=== PATIENT | male | born 1945 | race Two or more races ===

== ENCOUNTER 2019-01-28 05:30 | Day surgery (SDC) | payer OTHER | END 2019-01-28 09:05 | disposition home or self-care (01) | LOC: AMB-ENDOS 05:30 | DX: R19.8 Other specified symptoms and signs involving the digestive system and abdomen (principal); Z86.010 Personal history of colon polyps ==

== ENCOUNTER 2020-07-07 21:11 | Inpatient (IN) | payer OTHER ==
[~2020-07-07] VITALS: Ht 172.7 cm; Wt 75.7 kg
[2020-07-09] MEDS ORDERED: LOSARTAN POTASS50 MG PO (06:18)
[2020-07-09] MEDS ORDERED: FOLIC ACID1 MG PO (06:18)
[2020-07-09] MEDS ORDERED: AZELASTINE205.5 MCG/ (06:18)
[2020-07-09] MEDS ORDERED: MONTELUKAST SOD10 MG (06:18)
[2020-07-09] MEDS ORDERED: SYNTHROID88 MCG PO (06:19)
[2020-07-09] MEDS ORDERED: SYMBICORT 16010.2 GM (06:19)
[2020-07-09] MEDS ORDERED: ATORVASTATIN CA10 MG PO (06:19)
== END 2020-07-14 11:07 | disposition home or self-care (01) | DRG 390 ==
LOC: ER 21:11 → SEC-K 07-08 09:37 → SURH 07-08 09:37
PROVIDERS: ADMIT Surgery; ATTEND Surgery
PROC: 02HV33Z Insertion of Infusion Device into Superior Vena Cava, Percutaneous Approach (ICD-10-PCS; principal; 2020-07-09)
PROC: 3E0436Z Introduction of Nutritional Substance into Central Vein, Percutaneous Approach (ICD-10-PCS; 2020-07-09)
DX: K56.690 Other partial intestinal obstruction (principal); E86.0 Dehydration; E03.9 Hypothyroidism, unspecified; I10 Essential (primary) hypertension; Z90.49 Acquired absence of other specified parts of digestive tract

== ENCOUNTER 2023-08-09 20:41 | Inpatient (IN) | payer OTHER ==
[~2023-08-09] VITALS: Ht 172.7 cm; Wt 73.0 kg
[~2023-08-09 20:41] MED LIST: ATORVASTATIN CA10 MG PO; AZELASTINE205.5 MCG/; FOLIC ACID1 MG PO; LOSARTAN POTASS50 MG PO; MONTELUKAST SOD10 MG; SYMBICORT 16010.2 GM; SYNTHROID88 MCG PO
[2023-08-09] MEDS ORDERED: INTESTINEX680 M1 PO (21:04)
[2023-08-09 23:09] LABS: URINE APPEARANCE Clear; URINE BILIRRUBIN Negative (NEGATIVE); URINE BLOOD Small; URINE COLOR Yellow; URINE GLUCOSE Negative (NEGATIVE); URINE LEUKOCYTE Trace; URINE NITRATE Negative; URINE PROTEIN Negative (NEGATIVE); URINE UROBILINOGEN 0.2 E.U./dl
[2023-08-09 23:13] LABS: URINE BACTERIA 37.4 uL (0.0-1933); URINE EPITHELIAL CELLS 6.4 uL (0.0-38.8); URINE RBC 5.3 uL (0.0-20.8); URINE WBC 21.7 uL (0.0-23.2)
[2023-08-09 23:15] LABS: HEMATOCRIT 30.4 % (39.0-48.0); MEAN CELL VOLUME 93.1 fL (80.0-100.00); MEAN CORPUSCULAR HGB CONC 32.4 g/dl (32.0-36.0); PLATELET COUNT 200 K/uL (150-450); RED BLOOD COUNT 3.26 M/uL (4.00-6.00); RED CELL DISTRIBUTION WIDTH 13.9 % (11.5-14.5)
[2023-08-09 23:17] LABS: HEMOGLOBIN 9.8 g/dL (13-16.00)
[2023-08-10 00:06] LABS: INR 1.05; PARTIAL THROMBOPLASTIN TIME 25.8 SECONDS (22.0-34.0)
[2023-08-10 00:11] LABS: CALCIUM 8.1 mg/dL (8.5-10.1); CREATININE SERUM 1.17 mg/dL (0.70-1.30); GFR 60.45; POTASSIUM 3.74 mEq/L (3.5-5.1)
[2023-08-10 10:06] LABS: HEMATOCRIT 23.8 % (39.0-48.0); MEAN CELL VOLUME 92.8 fL (80.0-100.00); PLATELET COUNT 179 K/uL (150-450); RED BLOOD COUNT 2.56 M/uL (4.00-6.00); RED CELL DISTRIBUTION WIDTH 13.4 % (11.5-14.5)
[2023-08-10 10:09] LABS: MEAN CORPUSCULAR HEMOGLOBIN 30.8 pg (27.00-32.0)
[2023-08-10 10:10] LABS: HEMOGLOBIN 7.9 g/dL (13-16.00)
[2023-08-10 13:37] LABS: ob NEGATIVE (NEGATIVE)
[2023-08-11 06:51] LABS: HEMATOCRIT 27.5 % (39.0-48.0); HEMOGLOBIN 9.4 g/dL (13-16.00); MEAN CELL VOLUME 90.4 fL (80.0-100.00); MEAN CORPUSCULAR HGB CONC 34.3 g/dl (32.0-36.0); PLATELET COUNT 154 K/uL (150-450); RED BLOOD COUNT 3.04 M/uL (4.00-6.00); RED CELL DISTRIBUTION WIDTH 14.1 % (11.5-14.5)
[2023-08-11 20:21] LABS: HEMATOCRIT 26.7 % (39.0-48.0); MEAN CELL VOLUME 89.3 fL (80.0-100.00); MEAN CORPUSCULAR HGB CONC 33.1 g/dl (32.0-36.0); PLATELET COUNT 157 K/uL (150-450); RED BLOOD COUNT 2.99 M/uL (4.00-6.00)
[2023-08-11 20:22] LABS: HEMOGLOBIN 8.8 g/dL (13-16.00); MEAN CORPUSCULAR HEMOGLOBIN 29.4 pg (27.00-32.0)
[2023-08-12 08:09] LABS: HEMATOCRIT 26.6 % (39.0-48.0); HEMOGLOBIN 9.1 g/dL (13-16.00); MEAN CELL VOLUME 89.7 fL (80.0-100.00); MEAN CORPUSCULAR HEMOGLOBIN 30.8 pg (27.00-32.0); MEAN CORPUSCULAR HGB CONC 34.3 g/dl (32.0-36.0); PLATELET COUNT 168 K/uL (150-450); RED BLOOD COUNT 2.96 M/uL (4.00-6.00)
[2023-08-12 08:18] LABS: BILIRUBIN TOTAL 0.42 mg/dL (0.3-1.2); CALCIUM 7.2 mg/dL (8.5-10.1); CREATININE SERUM 0.93 mg/dL (0.70-1.30); GFR 78.78; GLOBULINA 2.2 G/DL (2.4-3.5); PHOSPHOROUS 2.2 mg/dL (2.5-4.9); POTASSIUM 3.59 mEq/L (3.5-5.1); TOTAL PROTEIN 4.2 gm/dL (6.4-8.2)
[2023-08-12 23:08] LABS: HEMATOCRIT 27.1 % (39.0-48.0); HEMOGLOBIN 9.4 g/dL (13-16.00); MEAN CELL VOLUME 88.4 fL (80.0-100.00); MEAN CORPUSCULAR HEMOGLOBIN 30.5 pg (27.00-32.0); MEAN CORPUSCULAR HGB CONC 34.5 g/dl (32.0-36.0); PLATELET COUNT 159 K/uL (150-450); RED BLOOD COUNT 3.06 M/uL (4.00-6.00); RED CELL DISTRIBUTION WIDTH 14.5 % (11.5-14.5)
[2023-08-13 09:09] LABS: HEMATOCRIT 24.1 % (39.0-48.0); MEAN CELL VOLUME 89.3 fL (80.0-100.00); MEAN CORPUSCULAR HGB CONC 33.5 g/dl (32.0-36.0); PLATELET COUNT 176 K/uL (150-450); RED CELL DISTRIBUTION WIDTH 14.3 % (11.5-14.5)
[2023-08-13 09:10] LABS: HEMOGLOBIN 8.1 g/dL (13-16.00)
[2023-08-13 14:24] LABS: INR 1.07; PARTIAL THROMBOPLASTIN TIME 25.7 SECONDS (22.0-34.0); PROTHROMBIN TIME 11.2 SECONDS (9.0-11.5)
[2023-08-14 01:54] LABS: HEMATOCRIT 24.9 % (39.0-48.0); HEMOGLOBIN 8.1 g/dL (13-16.00); MEAN CELL VOLUME 90.6 fL (80.0-100.00); MEAN CORPUSCULAR HEMOGLOBIN 29.4 pg (27.00-32.0); MEAN CORPUSCULAR HGB CONC 32.7 g/dl (32.0-36.0); PLATELET COUNT 167 K/uL (150-450); RED BLOOD COUNT 2.75 M/uL (4.00-6.00)
[2023-08-14 21:12] LABS: ABG PH 7.567 (7.35-7.45); ABG PO2 96.1 mmHg (80-100); ABG pCO2 23.4 mmHg (35-45); BASE EXCESS 0.7 mmol/l; BICARBONATE 20.8 mmol/l (23-25); SaO2 98.5 %; Tco2 21.5 mmol/l; o2 21 %
[2023-08-14 21:13] LABS: allen test SATISFACTORY; puncture site RADIAL RIGHT
[2023-08-15 01:11] LABS: HEMATOCRIT 30.2 % (39.0-48.0); MEAN CELL VOLUME 92.7 fL (80.0-100.00); MEAN CORPUSCULAR HGB CONC 32.2 g/dl (32.0-36.0); RED BLOOD COUNT 3.25 M/uL (4.00-6.00); RED CELL DISTRIBUTION WIDTH 15.1 % (11.5-14.5)
[2023-08-15 01:15] LABS: HEMOGLOBIN 9.7 g/dL (13-16.00); MEAN CORPUSCULAR HEMOGLOBIN 29.8 pg (27.00-32.0); PLATELET COUNT 137 K/uL (150-450)
[2023-08-15 07:47] LABS: ALBUMIN 1.6 gm/dL (3.4-5.0); BILIRUBIN TOTAL 0.35 mg/dL (0.3-1.2); CHOL HDL RATIO 4.1 (0-5.0); CREATININE SERUM 1.57 mg/dL (0.70-1.30); GFR 43.05; GLOBULINA 1.7 G/DL (2.4-3.5); MAGNESIUM 2.1 mg/dL (1.8-2.4); PHOSPHOROUS 2.4 mg/dL (2.5-4.9); POTASSIUM 3.15 mEq/L (3.5-5.1); TOTAL PROTEIN 3.3 gm/dL (6.4-8.2)
[2023-08-15 07:51] LABS: C-REACTIVE PROTEIN 0.43 MG/DL (0.00-0.29)
[2023-08-15 11:02] LABS: MEAN CELL VOLUME 89.1 fL (80.0-100.00); MEAN CORPUSCULAR HGB CONC 33.1 g/dl (32.0-36.0); PLATELET COUNT 142 K/uL (150-450); RED BLOOD COUNT 2.45 M/uL (4.00-6.00); RED CELL DISTRIBUTION WIDTH 14.5 % (11.5-14.5)
[2023-08-15 11:05] LABS: MEAN CORPUSCULAR HEMOGLOBIN 29.3 pg (27.00-32.0)
[2023-08-15 11:06] LABS: HEMATOCRIT 21.8 % (39.0-48.0); HEMOGLOBIN 7.2 g/dL (13-16.00)
[2023-08-15 11:13] LABS: INR 1.26; PARTIAL THROMBOPLASTIN TIME 26.5 SECONDS (22.0-34.0)
[2023-08-16 00:58] LABS: MEAN CELL VOLUME 91.2 fL (80.0-100.00); PLATELET COUNT 143 K/uL (150-450); RED BLOOD COUNT 1.27 M/uL (4.00-6.00); RED CELL DISTRIBUTION WIDTH 14.5 % (11.5-14.5)
[2023-08-16 01:09] LABS: HEMATOCRIT 11.5 % (39.0-48.0); MEAN CORPUSCULAR HEMOGLOBIN 29.1 pg (27.00-32.0)
[2023-08-16 01:12] LABS: HEMOGLOBIN 3.7 g/dL (13-16.00)
[2023-08-16 01:46] LABS: INR 1.14; PARTIAL THROMBOPLASTIN TIME 24.4 SECONDS (22.0-34.0); PROTHROMBIN TIME 11.9 SECONDS (9.0-11.5)
[2023-08-16 08:15] LABS: MEAN CELL VOLUME 89.9 fL (80.0-100.00); MEAN CORPUSCULAR HGB CONC 33.5 g/dl (32.0-36.0); PLATELET COUNT 149 K/uL (150-450); RED BLOOD COUNT 2.29 M/uL (4.00-6.00); RED CELL DISTRIBUTION WIDTH 14.5 % (11.5-14.5)
[2023-08-16 08:23] LABS: MEAN CORPUSCULAR HEMOGLOBIN 30.1 pg (27.00-32.0)
[2023-08-16 08:24] LABS: HEMATOCRIT 20.6 % (39.0-48.0)
[2023-08-16 08:27] LABS: HEMOGLOBIN 6.9 g/dL (13-16.00)
[2023-08-17 07:47] LABS: ABG PH 7.413 (7.35-7.45); ABG PO2 81.2 mmHg (80-100); ABG pCO2 40.1 mmHg (35-45); BASE EXCESS 0.5 mmol/l; Tco2 26.2 mmol/l
[2023-08-17 10:12] LABS: HEMATOCRIT 44.9 % (39.0-48.0); HEMOGLOBIN 14.5 g/dL (13-16.00); MEAN CELL VOLUME 89.2 fL (80.0-100.00); MEAN CORPUSCULAR HEMOGLOBIN 28.7 pg (27.00-32.0); MEAN CORPUSCULAR HGB CONC 32.2 g/dl (32.0-36.0); PLATELET COUNT 136 K/uL (150-450); RED BLOOD COUNT 5.04 M/uL (4.00-6.00)
[2023-08-17 10:40] LABS: RED CELL DISTRIBUTION WIDTH 18.3 % (11.5-14.5)
[2023-08-17 10:57] LABS: ALBUMIN 1.9 gm/dL (3.4-5.0); BILIRUBIN TOTAL 0.57 mg/dL (0.3-1.2); CALCIUM 7.5 mg/dL (8.5-10.1); CREATININE SERUM 1.55 mg/dL (0.70-1.30); GFR 43.69; GLOBULINA 2.1 G/DL (2.4-3.5); POTASSIUM 3.12 mEq/L (3.5-5.1)
[2023-08-17 10:59] LABS: allen test SATISFACTORY; o2 50 %; puncture site RADIAL RIGHT
[2023-08-18 06:29] LABS: HEMATOCRIT 36.7 % (39.0-48.0); HEMOGLOBIN 12.5 g/dL (13-16.00); MEAN CORPUSCULAR HEMOGLOBIN 29.9 pg (27.00-32.0); MEAN CORPUSCULAR HGB CONC 33.9 g/dl (32.0-36.0); PLATELET COUNT 134 K/uL (150-450); RED BLOOD COUNT 4.17 M/uL (4.00-6.00); RED CELL DISTRIBUTION WIDTH 18.9 % (11.5-14.5)
[2023-08-18 07:14] LABS: ALBUMIN 1.5 gm/dL (3.4-5.0); BILIRUBIN TOTAL 0.44 mg/dL (0.3-1.2); CREATININE SERUM 1.2 mg/dL (0.70-1.30); GFR 58.71; GLOBULINA 2.1 G/DL (2.4-3.5); MAGNESIUM 2.1 mg/dL (1.8-2.4); POTASSIUM 3.58 mEq/L (3.5-5.1); TOTAL PROTEIN 3.6 gm/dL (6.4-8.2)
[2023-08-18 07:24] LABS: PHOSPHOROUS 1.9 mg/dL (2.5-4.9)
[2023-08-18 08:45] LABS: ABG PH 7.415 (7.35-7.45); ABG PO2 121.2 mmHg (80-100); ABG pCO2 45.8 mmHg (35-45); BASE EXCESS 3.4 mmol/l; BICARBONATE 28.7 mmol/l (23-25); SaO2 98.8 %; Tco2 30.1 mmol/l
[2023-08-18 08:46] LABS: allen test SATISFACTORY; o2 40 %; puncture site RADIAL RIGHT
[2023-08-19 08:05] LABS: HEMATOCRIT 36.5 % (39.0-48.0); HEMOGLOBIN 12.1 g/dL (13-16.00); MEAN CELL VOLUME 89.8 fL (80.0-100.00); MEAN CORPUSCULAR HEMOGLOBIN 29.7 pg (27.00-32.0); PLATELET COUNT 164 K/uL (150-450); RED BLOOD COUNT 4.06 M/uL (4.00-6.00); RED CELL DISTRIBUTION WIDTH 19.3 % (11.5-14.5)
[2023-08-19 08:06] LABS: URINE APPEARANCE Clear; URINE BILIRRUBIN Negative (NEGATIVE); URINE BLOOD Small; URINE COLOR Orange; URINE GLUCOSE Negative (NEGATIVE); URINE LEUKOCYTE Small; URINE NITRATE Negative; URINE UROBILINOGEN 0.2 E.U./dl
[2023-08-19 08:31] LABS: ALBUMIN 1.7 gm/dL (3.4-5.0); BILIRUBIN TOTAL 0.69 mg/dL (0.3-1.2); CALCIUM 7.3 mg/dL (8.5-10.1); CREATININE SERUM 1.1 mg/dL (0.70-1.30); GFR 64.91; GLOBULINA 2.3 G/DL (2.4-3.5); MAGNESIUM 2.3 mg/dL (1.8-2.4); POTASSIUM 4.08 mEq/L (3.5-5.1)
[2023-08-19 08:37] LABS: URINE BACTERIA 28.9 uL (0.0-1933); URINE EPITHELIAL CELLS 10.6 uL (0.0-38.8); URINE RBC 106.4 uL (0.0-20.8); URINE WBC 66.3 uL (0.0-23.2)
[2023-08-19 09:00] LABS: URINE MUCUS SCANT; URINE PROTEIN 100 (NEGATIVE)
[2023-08-19 10:56] LABS: ABG PH 7.427 (7.35-7.45); ABG PO2 92.3 mmHg (80-100); ABG pCO2 43.7 mmHg (35-45); BASE EXCESS 3.3 mmol/l; BICARBONATE 28.1 mmol/l (23-25); SaO2 97.4 %; Tco2 29.5 mmol/l
[2023-08-19 10:57] LABS: allen test SATISFACTORY; o2 30 %; puncture site RADIAL RIGHT
[2023-08-20 07:46] LABS: HEMOGLOBIN 12.2 g/dL (13-16.00); MEAN CELL VOLUME 90.7 fL (80.0-100.00); MEAN CORPUSCULAR HEMOGLOBIN 29.1 pg (27.00-32.0); MEAN CORPUSCULAR HGB CONC 32.1 g/dl (32.0-36.0); PLATELET COUNT 212 K/uL (150-450); RED BLOOD COUNT 4.18 M/uL (4.00-6.00); RED CELL DISTRIBUTION WIDTH 18.5 % (11.5-14.5)
[2023-08-20 08:37] LABS: CALCIUM 7.7 mg/dL (8.5-10.1); CREATININE SERUM 1.12 mg/dL (0.70-1.30); GFR 63.57; MAGNESIUM 2.4 mg/dL (1.8-2.4); PHOSPHOROUS 2.2 mg/dL (2.5-4.9); POTASSIUM 3.69 mEq/L (3.5-5.1)
[2023-08-21 06:22] LABS: HEMATOCRIT 36.1 % (39.0-48.0); HEMOGLOBIN 11.7 g/dL (13-16.00); MEAN CELL VOLUME 90.2 fL (80.0-100.00); MEAN CORPUSCULAR HEMOGLOBIN 29.2 pg (27.00-32.0); MEAN CORPUSCULAR HGB CONC 32.3 g/dl (32.0-36.0); PLATELET COUNT 236 K/uL (150-450); RED CELL DISTRIBUTION WIDTH 18.4 % (11.5-14.5)
[2023-08-21 07:01] LABS: INR 0.99; PARTIAL THROMBOPLASTIN TIME 30.4 SECONDS (22.0-34.0); PROTHROMBIN TIME 10.4 SECONDS (9.0-11.5)
[2023-08-21 07:18] LABS: ALBUMIN 1.6 gm/dL (3.4-5.0); BILIRUBIN TOTAL 0.62 mg/dL (0.3-1.2); BILIRUBIN,CONJUGATED 0.31 mg/dL (0.0-0.2); BILIRUBIN,UNCONJUGATED 0.31 mg/dL (0.0-0.6); CALCIUM 7.9 mg/dL (8.5-10.1); CHOL HDL RATIO 3.9 (0-5.0); CREATININE SERUM 0.98 mg/dL (0.70-1.30); GFR 74.16; GLOBULINA 2.6 G/DL (2.4-3.5); MAGNESIUM 2.4 mg/dL (1.8-2.4); PHOSPHOROUS 2.7 mg/dL (2.5-4.9); POTASSIUM 3.62 mEq/L (3.5-5.1); TOTAL PROTEIN 4.2 gm/dL (6.4-8.2)
[2023-08-21 07:54] LABS: UREA CLEARANCE 30.5 ML/MIN
[2023-08-22 06:24] LABS: HEMATOCRIT 33.6 % (39.0-48.0); HEMOGLOBIN 11.2 g/dL (13-16.00); MEAN CELL VOLUME 88.8 fL (80.0-100.00); MEAN CORPUSCULAR HEMOGLOBIN 29.7 pg (27.00-32.0); MEAN CORPUSCULAR HGB CONC 33.4 g/dl (32.0-36.0); PLATELET COUNT 245 K/uL (150-450); RED BLOOD COUNT 3.78 M/uL (4.00-6.00)
[2023-08-22 07:07] LABS: CALCIUM 7.6 mg/dL (8.5-10.1); CREATININE SERUM 0.94 mg/dL (0.70-1.30); GFR 77.82; MAGNESIUM 2.4 mg/dL (1.8-2.4); PHOSPHOROUS 2.5 mg/dL (2.5-4.9); POTASSIUM 3.36 mEq/L (3.5-5.1)
[2023-08-24 06:40] LABS: HEMATOCRIT 33.6 % (39.0-48.0); MEAN CELL VOLUME 88.7 fL (80.0-100.00); MEAN CORPUSCULAR HEMOGLOBIN 29.1 pg (27.00-32.0); MEAN CORPUSCULAR HGB CONC 32.9 g/dl (32.0-36.0); PLATELET COUNT 267 K/uL (150-450); RED BLOOD COUNT 3.79 M/uL (4.00-6.00); RED CELL DISTRIBUTION WIDTH 17.7 % (11.5-14.5)
[2023-08-24 07:05] LABS: ALBUMIN 2.2 gm/dL (3.4-5.0); BILIRUBIN TOTAL 0.55 mg/dL (0.3-1.2); CREATININE SERUM 1.07 mg/dL (0.70-1.30); GFR 67.01; GLOBULINA 2.7 G/DL (2.4-3.5); MAGNESIUM 2.7 mg/dL (1.8-2.4); PHOSPHOROUS 2.5 mg/dL (2.5-4.9); POTASSIUM 3.23 mEq/L (3.5-5.1); TOTAL PROTEIN 4.9 gm/dL (6.4-8.2)
[2023-08-25 07:14] LABS: HEMATOCRIT 34.2 % (39.0-48.0); HEMOGLOBIN 11.1 g/dL (13-16.00); MEAN CORPUSCULAR HEMOGLOBIN 29.2 pg (27.00-32.0); MEAN CORPUSCULAR HGB CONC 32.5 g/dl (32.0-36.0); PLATELET COUNT 264 K/uL (150-450); RED CELL DISTRIBUTION WIDTH 17.3 % (11.5-14.5)
[2023-08-26 08:24] LABS: HEMATOCRIT 30.2 % (39.0-48.0); HEMOGLOBIN 10.2 g/dL (13-16.00); MEAN CELL VOLUME 87.9 fL (80.0-100.00); MEAN CORPUSCULAR HEMOGLOBIN 29.7 pg (27.00-32.0); MEAN CORPUSCULAR HGB CONC 33.8 g/dl (32.0-36.0); PLATELET COUNT 219 K/uL (150-450); RED BLOOD COUNT 3.44 M/uL (4.00-6.00); RED CELL DISTRIBUTION WIDTH 17.3 % (11.5-14.5)
[2023-08-26 09:04] LABS: ALBUMIN 1.9 gm/dL (3.4-5.0); CALCIUM 7.5 mg/dL (8.5-10.1); CREATININE SERUM 0.86 mg/dL (0.70-1.30); GFR 86.23; MAGNESIUM 2.3 mg/dL (1.8-2.4); POTASSIUM 3.05 mEq/L (3.5-5.1)
[2023-08-26 09:08] LABS: PHOSPHOROUS 1.7 mg/dL (2.5-4.9)
[2023-08-27 08:13] LABS: CALCIUM 7.6 mg/dL (8.5-10.1); CREATININE SERUM 0.78 mg/dL (0.70-1.30); GFR 96.51; MAGNESIUM 2.1 mg/dL (1.8-2.4); POTASSIUM 3.05 mEq/L (3.5-5.1)
[2023-08-27 08:31] LABS: PHOSPHOROUS 1.5 mg/dL (2.5-4.9)
[2023-08-28 07:05] LABS: HEMATOCRIT 33.1 % (39.0-48.0); MEAN CELL VOLUME 88.2 fL (80.0-100.00); MEAN CORPUSCULAR HEMOGLOBIN 29.3 pg (27.00-32.0); MEAN CORPUSCULAR HGB CONC 33.3 g/dl (32.0-36.0); PLATELET COUNT 220 K/uL (150-450); RED BLOOD COUNT 3.76 M/uL (4.00-6.00); RED CELL DISTRIBUTION WIDTH 17.8 % (11.5-14.5)
[2023-08-28 07:12] LABS: INR 1.14; PARTIAL THROMBOPLASTIN TIME 27.6 SECONDS (22.0-34.0); PROTHROMBIN TIME 11.9 SECONDS (9.0-11.5)
[2023-08-28 07:13] LABS: ALBUMIN 2.1 gm/dL (3.4-5.0); BILIRUBIN TOTAL 0.42 mg/dL (0.3-1.2); BILIRUBIN,CONJUGATED 0.15 mg/dL (0.0-0.2); BILIRUBIN,UNCONJUGATED 0.27 mg/dL (0.0-0.6); CALCIUM 7.7 mg/dL (8.5-10.1); CREATININE SERUM 0.96 mg/dL (0.70-1.30); GFR 75.95; GLOBULINA 2.9 G/DL (2.4-3.5); POTASSIUM 3.04 mEq/L (3.5-5.1)
[2023-08-28 07:16] LABS: CALCIUM 7.6 mg/dL (8.5-10.1); CREATININE SERUM 0.94 mg/dL (0.70-1.30); GFR 77.82; MAGNESIUM 2.1 mg/dL (1.8-2.4); POTASSIUM 3.09 mEq/L (3.5-5.1)
[2023-08-28 07:30] LABS: PHOSPHOROUS 1.7 mg/dL (2.5-4.9)
[2023-08-28 09:38] LABS: UREA CLEARANCE 49.6 ML/MIN
[2023-08-29 07:25] LABS: ALBUMIN 2.1 gm/dL (3.4-5.0); CALCIUM 7.6 mg/dL (8.5-10.1); CREATININE SERUM 0.86 mg/dL (0.70-1.30); GFR 86.23; PHOSPHOROUS 2.1 mg/dL (2.5-4.9); POTASSIUM 3.03 mEq/L (3.5-5.1)
[2023-08-29 07:56] LABS: HEMATOCRIT 33.5 % (39.0-48.0); HEMOGLOBIN 10.8 g/dL (13-16.00); MEAN CELL VOLUME 89.6 fL (80.0-100.00); MEAN CORPUSCULAR HEMOGLOBIN 28.9 pg (27.00-32.0); MEAN CORPUSCULAR HGB CONC 32.2 g/dl (32.0-36.0); PLATELET COUNT 230 K/uL (150-450); RED BLOOD COUNT 3.74 M/uL (4.00-6.00); RED CELL DISTRIBUTION WIDTH 17.9 % (11.5-14.5)
[2023-08-30 09:33] LABS: CALCIUM 7.6 mg/dL (8.5-10.1); CREATININE SERUM 1.02 mg/dL (0.70-1.30); GFR 70.82; MAGNESIUM 1.9 mg/dL (1.8-2.4); POTASSIUM 3.6 mEq/L (3.5-5.1)
[2023-08-30 09:48] LABS: PHOSPHOROUS 1.8 mg/dL (2.5-4.9)
[2023-08-31 06:49] LABS: HEMATOCRIT 31.9 % (39.0-48.0); HEMOGLOBIN 10.5 g/dL (13-16.00); MEAN CORPUSCULAR HEMOGLOBIN 29.6 pg (27.00-32.0); MEAN CORPUSCULAR HGB CONC 32.9 g/dl (32.0-36.0); PLATELET COUNT 140 K/uL (150-450); RED BLOOD COUNT 3.54 M/uL (4.00-6.00); RED CELL DISTRIBUTION WIDTH 18.4 % (11.5-14.5)
[2023-08-31 07:23] LABS: CALCIUM 7.6 mg/dL (8.5-10.1); CREATININE SERUM 0.98 mg/dL (0.70-1.30); GFR 74.16; MAGNESIUM 1.8 mg/dL (1.8-2.4); POTASSIUM 3.61 mEq/L (3.5-5.1)
[2023-08-31 07:30] LABS: PHOSPHOROUS 1.7 mg/dL (2.5-4.9)
[2023-08-31 13:15] LABS: URINE APPEARANCE Cloudy; URINE BILIRRUBIN Negative (NEGATIVE); URINE BLOOD Moderate; URINE COLOR Yellow; URINE GLUCOSE Negative (NEGATIVE); URINE LEUKOCYTE Trace; URINE NITRATE Negative; URINE PROTEIN 30 (NEGATIVE); URINE UROBILINOGEN 0.2 E.U./dl
[2023-08-31 13:18] LABS: URINE BACTERIA 343.9 uL (0.0-1933); URINE EPITHELIAL CELLS 7.4 uL (0.0-38.8); URINE RBC 21.1 uL (0.0-20.8); URINE WBC 8.9 uL (0.0-23.2)
[2023-09-01 09:43] LABS: HEMOGLOBIN 10.5 g/dL (13-16.00); MEAN CELL VOLUME 87.9 fL (80.0-100.00); MEAN CORPUSCULAR HEMOGLOBIN 29.9 pg (27.00-32.0); RED BLOOD COUNT 3.52 M/uL (4.00-6.00); RED CELL DISTRIBUTION WIDTH 18.2 % (11.5-14.5)
[2023-09-01 09:46] LABS: ALBUMIN 1.9 gm/dL (3.4-5.0); CALCIUM 7.2 mg/dL (8.5-10.1); CREATININE SERUM 0.94 mg/dL (0.70-1.30); GFR 77.82; PHOSPHOROUS 2.1 mg/dL (2.5-4.9); PLATELET COUNT 121 K/uL (150-450); POTASSIUM 3.04 mEq/L (3.5-5.1)
[2023-09-02 08:33] LABS: CALCIUM 7.4 mg/dL (8.5-10.1); CREATININE SERUM 0.9 mg/dL (0.70-1.30); GFR 81.82; MAGNESIUM 1.8 mg/dL (1.8-2.4); PHOSPHOROUS 2.5 mg/dL (2.5-4.9); POTASSIUM 3.81 mEq/L (3.5-5.1)
[2023-09-02 08:37] LABS: HEMATOCRIT 30.6 % (39.0-48.0); HEMOGLOBIN 10.5 g/dL (13-16.00); MEAN CELL VOLUME 87.4 fL (80.0-100.00); MEAN CORPUSCULAR HEMOGLOBIN 29.9 pg (27.00-32.0); MEAN CORPUSCULAR HGB CONC 34.2 g/dl (32.0-36.0); RED CELL DISTRIBUTION WIDTH 18.1 % (11.5-14.5)
[2023-09-02 09:59] LABS: PLATELET COUNT 123 K/uL (150-450)
[2023-09-04 07:16] LABS: HEMATOCRIT 30.8 % (39.0-48.0); HEMOGLOBIN 10.6 g/dL (13-16.00); MEAN CELL VOLUME 86.3 fL (80.0-100.00); MEAN CORPUSCULAR HEMOGLOBIN 29.8 pg (27.00-32.0); MEAN CORPUSCULAR HGB CONC 34.5 g/dl (32.0-36.0); RED BLOOD COUNT 3.57 M/uL (4.00-6.00)
[2023-09-04 07:31] LABS: PLATELET COUNT 127 K/uL (150-450)
[2023-09-04 07:38] LABS: ERYTHROCYTE SEDIMENTATION RATE 23 mm/hr
[2023-09-04 07:57] LABS: INR 1.2; PARTIAL THROMBOPLASTIN TIME 31.3 SECONDS (22.0-34.0); PROTHROMBIN TIME 12.4 SECONDS (9.0-11.5)
[2023-09-04 08:18] LABS: BILIRUBIN TOTAL 0.49 mg/dL (0.3-1.2); BILIRUBIN,CONJUGATED 0.21 mg/dL (0.0-0.2); BILIRUBIN,UNCONJUGATED 0.28 mg/dL (0.0-0.6); CALCIUM 7.7 mg/dL (8.5-10.1); CREATININE SERUM 0.88 mg/dL (0.70-1.30); GFR 83.97; GLOBULINA 3.2 G/DL (2.4-3.5); MAGNESIUM 1.7 mg/dL (1.8-2.4); TOTAL PROTEIN 5.2 gm/dL (6.4-8.2)
[2023-09-04 08:31] LABS: C-REACTIVE PROTEIN 3.71 MG/DL (0.00-0.29); CHOL HDL RATIO 4.6 (0-5.0)
[2023-09-04 08:33] LABS: POTASSIUM 2.75 mEq/L (3.5-5.1)
[2023-09-04 08:42] LABS: UREA CLEARANCE 44.8 ML/MIN
[2023-09-05 06:35] LABS: HEMATOCRIT 33.4 % (39.0-48.0); HEMOGLOBIN 10.9 g/dL (13-16.00); MEAN CELL VOLUME 87.1 fL (80.0-100.00); MEAN CORPUSCULAR HEMOGLOBIN 28.5 pg (27.00-32.0); MEAN CORPUSCULAR HGB CONC 32.7 g/dl (32.0-36.0); PLATELET COUNT 138 K/uL (150-450); RED BLOOD COUNT 3.84 M/uL (4.00-6.00); RED CELL DISTRIBUTION WIDTH 17.9 % (11.5-14.5)
[2023-09-05 07:11] LABS: ALBUMIN 2.1 gm/dL (3.4-5.0); CREATININE SERUM 0.91 mg/dL (0.70-1.30); GFR 80.79; MAGNESIUM 2.4 mg/dL (1.8-2.4); PHOSPHOROUS 2.9 mg/dL (2.5-4.9); POTASSIUM 4.08 mEq/L (3.5-5.1)
[2023-09-07 16:36] LABS: ABG PH 7.464 (7.35-7.45); ABG PO2 85.3 mmHg (80-100); BASE EXCESS 0.7 mmol/l; BICARBONATE 23.9 mmol/l (23-25); SaO2 97.1 %; Tco2 24.9 mmol/l
[2023-09-07 16:37] LABS: allen test SATISFACTORY; o2 21 %; puncture site RADIAL RIGHT
[2023-09-08 07:26] LABS: ALBUMIN 2.4 gm/dL (3.4-5.0); BILIRUBIN TOTAL 0.63 mg/dL (0.3-1.2); CALCIUM 8.2 mg/dL (8.5-10.1); CREATININE SERUM 0.91 mg/dL (0.70-1.30); GFR 80.79; GLOBULINA 3.7 G/DL (2.4-3.5); MAGNESIUM 2.4 mg/dL (1.8-2.4); PHOSPHOROUS 3.2 mg/dL (2.5-4.9); POTASSIUM 4.35 mEq/L (3.5-5.1); TOTAL PROTEIN 6.1 gm/dL (6.4-8.2)
[2023-09-08 08:02] LABS: HEMATOCRIT 36.9 % (39.0-48.0); MEAN CELL VOLUME 89.3 fL (80.0-100.00); MEAN CORPUSCULAR HGB CONC 32.4 g/dl (32.0-36.0); PLATELET COUNT 274 K/uL (150-450); RED BLOOD COUNT 4.13 M/uL (4.00-6.00); RED CELL DISTRIBUTION WIDTH 19.2 % (11.5-14.5)
[2023-09-11 02:48] LABS: TROPONIN I hs 7.6 PG/ML (42.2-82.3)
[2023-09-11 07:19] LABS: HEMATOCRIT 36.8 % (39.0-48.0); HEMOGLOBIN 11.7 g/dL (13-16.00); INR 1.03; MEAN CORPUSCULAR HEMOGLOBIN 28.7 pg (27.00-32.0); MEAN CORPUSCULAR HGB CONC 31.9 g/dl (32.0-36.0); PARTIAL THROMBOPLASTIN TIME 26.9 SECONDS (22.0-34.0); PLATELET COUNT 272 K/uL (150-450); PROTHROMBIN TIME 10.8 SECONDS (9.0-11.5); RED BLOOD COUNT 4.09 M/uL (4.00-6.00); RED CELL DISTRIBUTION WIDTH 19.6 % (11.5-14.5)
[2023-09-11 07:49] LABS: ALBUMIN 2.7 gm/dL (3.4-5.0); BILIRUBIN TOTAL 0.89 mg/dL (0.3-1.2); BILIRUBIN,CONJUGATED 0.26 mg/dL (0.0-0.2); BILIRUBIN,UNCONJUGATED 0.63 mg/dL (0.0-0.6); CALCIUM 8.4 mg/dL (8.5-10.1); CHOL HDL RATIO 4.5 (0-5.0); CREATININE SERUM 1.03 mg/dL (0.70-1.30); GFR 70.03; GLOBULINA 3.9 G/DL (2.4-3.5); MAGNESIUM 2.4 mg/dL (1.8-2.4); POTASSIUM 4.38 mEq/L (3.5-5.1); TOTAL PROTEIN 6.6 gm/dL (6.4-8.2)
[2023-09-11 12:39] LABS: PH,URINE 5.5 (5.0-8.0); URINE APPEARANCE Cloudy; URINE BILIRRUBIN Negative (NEGATIVE); URINE BLOOD Large; URINE COLOR Dark Yellow; URINE GLUCOSE Negative (NEGATIVE); URINE LEUKOCYTE Moderate; URINE NITRATE Positive
[2023-09-11 12:40] LABS: UREA CLEARANCE 49.1 ML/MIN
[2023-09-11 12:44] LABS: URINE EPITHELIAL CELLS 1.8 uL (0.0-38.8); URINE RBC 183.9 uL (0.0-20.8)
[2023-09-11 12:56] LABS: URINE BACTERIA > 9821.5 uL (0.0-1933); URINE PROTEIN 100 (NEGATIVE)
[2023-09-12 13:48] LABS: ABG PH 7.482 (7.35-7.45)
[2023-09-12 13:49] LABS: ABG PO2 87.4 mmHg (80-100); ABG pCO2 35.5 mmHg (35-45); BASE EXCESS 2.8 mmol/l; SaO2 97.5 %; Tco2 27.1 mmol/l; allen test SATISFACTORY; o2 21 %; puncture site RADIAL RIGHT
[2023-09-13 06:38] LABS: HEMATOCRIT 32.4 % (39.0-48.0); HEMOGLOBIN 10.5 g/dL (13-16.00); MEAN CELL VOLUME 90.7 fL (80.0-100.00); MEAN CORPUSCULAR HEMOGLOBIN 29.5 pg (27.00-32.0); MEAN CORPUSCULAR HGB CONC 32.5 g/dl (32.0-36.0); PLATELET COUNT 236 K/uL (150-450); RED BLOOD COUNT 3.57 M/uL (4.00-6.00); RED CELL DISTRIBUTION WIDTH 19.4 % (11.5-14.5)
[2023-09-13 07:08] LABS: ALBUMIN 2.2 gm/dL (3.4-5.0); BILIRUBIN TOTAL 0.59 mg/dL (0.3-1.2); CALCIUM 8.1 mg/dL (8.5-10.1); CREATININE SERUM 0.96 mg/dL (0.70-1.30); GFR 75.95; GLOBULINA 3.8 G/DL (2.4-3.5); MAGNESIUM 2.8 mg/dL (1.8-2.4); PHOSPHOROUS 5.5 mg/dL (2.5-4.9); POTASSIUM 5.65 mEq/L (3.5-5.1)
[2023-09-13 07:26] LABS: C-REACTIVE PROTEIN 6.9 MG/DL (0.00-0.29)
[2023-09-13 18:53] LABS: PH,URINE 6.5 (5.0-8.0); URINE APPEARANCE Clear; URINE BILIRRUBIN Negative (NEGATIVE); URINE BLOOD NHT; URINE COLOR Yellow; URINE GLUCOSE Negative (NEGATIVE); URINE LEUKOCYTE Moderate; URINE NITRATE Negative; URINE PROTEIN Trace (NEGATIVE); URINE UROBILINOGEN 0.2 E.U./dl
[2023-09-13 18:56] LABS: URINE BACTERIA 28.9 uL (0.0-1933); URINE EPITHELIAL CELLS 38.8 uL (0.0-38.8); URINE RBC 14.5 uL (0.0-20.8); URINE WBC 245.1 uL (0.0-23.2)
[2023-09-14 07:15] LABS: ALBUMIN 2.2 gm/dL (3.4-5.0); BILIRUBIN TOTAL 0.49 mg/dL (0.3-1.2); CALCIUM 8.2 mg/dL (8.5-10.1); CREATININE SERUM 0.98 mg/dL (0.70-1.30); GFR 74.16; POTASSIUM 4.29 mEq/L (3.5-5.1); TOTAL PROTEIN 6.2 gm/dL (6.4-8.2)
[2023-09-18 06:52] LABS: MEAN CELL VOLUME 89.9 fL (80.0-100.00); MEAN CORPUSCULAR HEMOGLOBIN 29.2 pg (27.00-32.0); MEAN CORPUSCULAR HGB CONC 32.4 g/dl (32.0-36.0); PLATELET COUNT 262 K/uL (150-450); RED BLOOD COUNT 3.78 M/uL (4.00-6.00); RED CELL DISTRIBUTION WIDTH 18.6 % (11.5-14.5)
[2023-09-18 07:30] LABS: ALBUMIN 2.4 gm/dL (3.4-5.0); BILIRUBIN TOTAL 0.32 mg/dL (0.3-1.2); CALCIUM 8.7 mg/dL (8.5-10.1); CREATININE SERUM 1.08 mg/dL (0.70-1.30); GFR 66.3; GLOBULINA 4.1 G/DL (2.4-3.5); MAGNESIUM 2.2 mg/dL (1.8-2.4); POTASSIUM 4.04 mEq/L (3.5-5.1); TOTAL PROTEIN 6.5 gm/dL (6.4-8.2)
== END 2023-09-20 15:13 | DRG 329 ==
LOC: ER 20:41 → ICU 08-10 00:54 → ICU-2 08-10 00:54 → SEC-K 08-10 00:54 → ICU-2 08-10 10:17 → MEDI 08-11 15:37 → ICU-2 08-11 16:59 → ICU 08-11 22:27 → SURG 09-06 15:06
PROVIDERS: General Practice; Internal Medicine; Internal Medicine Critical Care Medicine; Internal Medicine Geriatric Medicine; Internal Medicine Hematology & Oncology; Internal Medicine Infectious Disease; Internal Medicine Nephrology; Surgery; ADMIT Specialist; ATTEND Specialist
PROC: 02HV33Z Insertion of Infusion Device into Superior Vena Cava, Percutaneous Approach (ICD-10-PCS; 2023-08-10)
PROC: 30233N1 Transfusion of Nonautologous Red Blood Cells into Peripheral Vein, Percutaneous Approach (ICD-10-PCS; 2023-08-10)
PROC: 0DJ08ZZ Inspection of Upper Intestinal Tract, Via Natural or Artificial Opening Endoscopic (ICD-10-PCS; 2023-08-11)
PROC: 0DJ08ZZ Inspection of Upper Intestinal Tract, Via Natural or Artificial Opening Endoscopic (ICD-10-PCS; 2023-08-13)
PROC: 0DJD8ZZ Inspection of Lower Intestinal Tract, Via Natural or Artificial Opening Endoscopic (ICD-10-PCS; 2023-08-13)
PROC: BW21YZZ Computerized Tomography (CT Scan) of Abdomen and Pelvis using Other Contrast (ICD-10-PCS; 2023-08-13)
PROC: CD271ZZ Tomographic (Tomo) Nuclear Medicine Imaging of Gastrointestinal Tract using Technetium 99m (Tc-99m) (ICD-10-PCS; 2023-08-13)
PROC: B24BZZZ Ultrasonography of Heart with Aorta (ICD-10-PCS; 2023-08-17)
PROC: 0DQ80ZZ Repair Small Intestine, Open Approach (ICD-10-PCS; principal; 2023-08-18)
PROC: 0DNW0ZZ Release Peritoneum, Open Approach (ICD-10-PCS; 2023-08-18)
PROC: 0DT80ZZ Resection of Small Intestine, Open Approach (ICD-10-PCS; 2023-08-18)
PROC: 0DJD8ZZ Inspection of Lower Intestinal Tract, Via Natural or Artificial Opening Endoscopic (ICD-10-PCS; 2023-08-18)
PROC: B54DZZZ Ultrasonography of Bilateral Lower Extremity Veins (ICD-10-PCS; 2023-08-30)
PROC: BW21YZZ Computerized Tomography (CT Scan) of Abdomen and Pelvis using Other Contrast (ICD-10-PCS; 2023-09-04)
PROC: B24BZZZ Ultrasonography of Heart with Aorta (ICD-10-PCS; 2023-09-04)
PROC: 4A12X4Z Monitoring of Cardiac Electrical Activity, External Approach (ICD-10-PCS; 2023-09-06)
DX: K92.1 Melena (principal); J95.821 Acute postprocedural respiratory failure; R57.1 Hypovolemic shock; K56.50 Intestinal adhesions [bands], unspecified as to partial versus complete obstruction; N17.9 Acute kidney failure, unspecified; J90 Pleural effusion, not elsewhere classified; K91.71 Accidental puncture and laceration of a digestive system organ or structure during a digestive system procedure; N39.0 Urinary tract infection, site not specified; R78.81 Bacteremia; K25.4 Chronic or unspecified gastric ulcer with hemorrhage; D64.9 Anemia, unspecified; E03.9 Hypothyroidism, unspecified; I12.9 Hypertensive chronic kidney disease with stage 1 through stage 4 chronic kidney disease, or unspecified chronic kidney disease; N18.9 Chronic kidney disease, unspecified; D50.0 Iron deficiency anemia secondary to blood loss (chronic); G47.33 Obstructive sleep apnea (adult) (pediatric); E87.6 Hypokalemia; D69.6 Thrombocytopenia, unspecified; B96.1 Klebsiella pneumoniae [K. pneumoniae] as the cause of diseases classified elsewhere; B96.89 Other specified bacterial agents as the cause of diseases classified elsewhere